=== PATIENT | male | born 1935 | race Caucasian/White ===

== ENCOUNTER 2017-07-02 02:03 | Observation (INO) | payer MEDICARE, OTHER ==
[~2017-07-02] VITALS: Ht 160 cm; Wt 74.1 kg
[~2017-07-02 02:03] MED LIST: ASPI-973 PO; LAN125 PO; LISI10TA PO; SIMV40TA5 PO; TAMS0.4C98 PO; VIT D PO
[2017-07-02 02:10] VITALS: BP 120/73; PULSE 89; RESP 16; O2SAT 96
--- NOTE | 2017-07-02 02:20 | ED.REPORT ---
HPI-Head Prob / Injury Date of Service Jul 02, 2017 ED Provider: Dr. Kwok Pt is an 82 y/o male anticoagulated on Eliquis w/ a hx of a-fib, HTN, presenting to the ED with his due to ground level fall which occurred prior to arrival. The patient normally gets up many times during the night to urinate and tonight he believes he got up too quickly which caused him to "feel generally weak" and therefore fall to the ground injuring his upper left lip. Pt denies syncope, change in LOC, CP, SOB, nausea, vomiting, diaphoresis, PANG, neck pain. He has had a syncopal episode a long time ago. Nursing Notes Stated Complaint: GLF, LIP LACERATION Chief Complaint: Multiple Trauma/Fall Nursing Notes Reviewed: Yes Allergies: Coded Allergies: Penicillins (Verified Allergy, Severe, rash and hives all over, 07/02/17) sildenafil (Verified Allergy, Unknown, too sleepy, 07/02/17) Scheduled ([Vit D]) 1 TABLET PO DAILY Aspirin (Aspirin) 81 Mg Tablet 81 MG PO EVERY OTHER DAY Digoxin (Lanoxin) 0.125 Mg Tablet 1.5 TAB PO DAILY Lisinopril (Lisinopril) 10 Mg Tablet 10 MG PO DAILY Simvastatin (Simvastatin) 40 Mg Tablet 40 MG PO HS Tamsulosin (Flomax) 0.4 Mg Capsule 0.8 MG PO DAILY General Time Seen by Provider: 02:22 Chief Complaint Blunt head trauma Hx Obtained From: Patient Arrived By: Walk-in Onset Occurred: Just prior to arrival Symptom Duration: 1 - 15 minutes Progression Since Onset: Gradually improving Severity: Current: No pain currently Severity: Maximum: No pain Similar Sx Previous: Yes Past Medical History Past Medical History A-fib anticoagulated on Eliquis HTN BPH Right carpal tunnel syndrome Possible prostate cancer Past Surgical History Cystoscopy Knee arthroscopy Smoking History Former Smoker Social History Alcohol Use: 3-5 per day Drug Use: Denies drug use Other Social History: Ambulatory Status Independent Review of Systems Constitutional: Denies: Fever GI: Denies: Abdominal pain Musculoskeletal: Denies: Neck pain Neurologic: Reports: Weakness, Denies: Change LOC, Headache, Syncope Complete sys rev & neg: except as marked. Respiratory: Denies: Shortness of breath Cardiovascular: Denies: Chest pain Physical Exam Initial Vital Signs Vital Signs (First) Date Time Temp Pulse Resp B/P Pulse Ox O2 Delivery O2 Flow Rate FiO2 07/02/17 02:10 89 16 120/73 96 Room Air 07/02/17 03:58 36.0 Initial VS: Reviewed, Vital signs normal Respiratory: Breath sounds normal, Clear to auscultation, No respiratory distress Cardiovascular: Regular rate & rhythm, Heart sounds normal, Intact distal pulses Abdomen / GI: Soft, Non-tender, No guarding, No rebound, No distention Extremities: Vascular intact, Neuro intact, No swelling, No tenderness Skin: Warm, Dry, No cyanosis Psychiatric: Mood/affect normal, Behavior normal, Normal thought content General/Constitutional: Awake, Alert, No acute distress, Cooperative, Not toxic appearing Head / Eyes: Normocephalic, PERRL, EOMI, No periorbital redness, No periorbital swelling, No photophobia Abrasions around L lateral eye and cheek ENT: Airway patent, Mucous membranes moist, Pharynx NL, No pooling of secretions, No trismus, Gums/dentition NL Deep through and through lip laceration about the left corner of the mouth which involves the circumoral muscle. Neck: Atraumatic, Supple, No meningismus, Full range of motion, No swelling, Non-tender, No midline vertebral tend Neurologic: Oriented X3, Speech NL, No motor deficits, No sensory deficits, CN II - XII intact, Cerebellar NL, Memory NL Interpretation & Diagnostics Lab Results Interpretation Result Diagram: 07/02/17 0240 07/02/17 0240 Test 07/02/17 02:40 White Blood Count 10.1th/mm3 (3.8-10.1) Red Blood Count 4.22mil/mm3 (4.40-5.80) Hemoglobin 13.6g/dL (13.8-17.2) Hematocrit 40.3% (41.0-50.0) Mean Corpuscular Volume 95.5fL (81-100) Mean Corpuscular Hemoglobin 32.2pg (27.0-35.0) Mean Corpuscular Hemoglobin Concent 33.7% (32.0-37.0) Red Cell Distribution Width 12.4% (12.3-15.4) Platelet Count 222bil/L (150-400) Neutrophils (%) (Auto) 67.0% (40-74) Lymphocytes (%) (Auto) 16.8% (14-46) Monocytes (%) (Auto) 11.2% (4-12) Eosinophils (%) (Auto) 4.3% (0-5) Basophils (%) (Auto) 0.4% (0-3) Prothrombin Time 11.0sec (8.1-12.5) Prothromb Time International Ratio 1.03ratio Activated Partial Thromboplast Time 30.4sec (22.8-33.0) Sodium Level 133mEq/L (134-144) Potassium Level 3.1mEq/L (3.5-5.2) Chloride Level 91mEq/L (97-108) Carbon Dioxide Level 23mmol/L (18-29) Blood Urea Nitrogen 24mg/dL (8-27) Creatinine 1.19mg/dL (0.76-1.27) Estimat Glomerular Filtration Rate 62mL/min (>59) Glucose Level 110mg/dL (60-99) Calcium Level 9.0mg/dL (8.5-10.1) Magnesium Level 1.8mg/dL (1.6-2.6) Total Bilirubin 0.8mg/dL (0.0-1.2) Aspartate Amino Transf (AST/SGOT) 18U/L (0-50) Alanine Aminotransferase (ALT/SGPT) 14U/L (0-44) Alkaline Phosphatase 65U/L (25-160) Troponin T 0.010ug/L (0.0-0.011) Pro-B-Type Natriuretic Peptide 1641pg/mL (0-486) Total Protein 7.3g/dL (6.4-8.4) Albumin 4.1g/dL (3.4-5.0) ECG Interpretation ECG Interpretation: Atrial fibrillation rate 93 Time: 02:28 Interpreted by: ED physician Normal ECG Interpretation: No acute ischemic changes CT Head Interpretation Impression: Generalized mild involutional changes and 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 No acute intracranial abnormality. Radiologist: Magda Yanes MD Study: Head CT no contrast Interpretation / Wet Read by: Interpret - Radiologist Procedures Laceration Management Laceration Management: Complicated lac repair - The muscle was incompletely transected. The anterior portion of the circumoral muscle was approximated with 1 4-0 chromic suture. 5 inverted 4-0 chromic sutures were used to repair the mucousal portion and the ashvin border was aligned with fast absorbing chromic. I finished repairing the skin surface with 5 fast plain gut sutures. Time: 03:20 Procedure Performed by: ED physician Consent / Setup / Site Prep: Consent from patient, Time-out performed, Hand hygiene observed, Stand sterile technique Location of Wound: Left corner of upper lip Wound Length: 3 cm Wound Preparation: Hibiclens - Chlorhexidine Debridement: None Irrigation: 150 cc Undermining / Margins: Vermilion border aligned, Flaps aligned # Sutures - Skin: 11 Closure Layers: 2 Suture Technique: Simple Post-Procedure / Complications: No complications, Condition improved, Tolerated procedure well, Patient stable Re-Eval/Medical Decision Med Decision/Clinical Course 82-year-old suffered an orthostatic ground level fall after getting up too quickly to urinate. He sustained a significant lip laceration requiring complex repair. This is detailed above. He is on [place] and struck his head with stunning no loss of consciousness apparently. CT scan initially as negative. Repeat CT scan hours per protocol. Admitted observation status for repeat CT this morning. Begun with oral clindamycin for his complex lip laceration. Source of Hx: Old records Re-Evaluation/Progress : Time of Eval: 03:59 Evaluation: Mental status normal, Neurologic nonfocal Re-Evaluation/Progress Note: Pt rechecked. Informed pt of plan for admission. Pt understands and agrees with plan for admission. All questions addressed. Consultation : Referral / Consult Name: Petty Smith DO Consulted With: Hospitalist Call Returned at: 03:59 Mixing Machine Operator: Will see patient, Agrees with eval, Agrees with plan, Accepts admit Counseled Regarding: Diagnosis, Lab results, Need for admission Discharge & Departure Primary Impression: Head injury Encounter type: initial encounter Qualified Code: S09.90XA - Unspecified injury of head, initial encounter Additional Impressions: Lip laceration Encounter type: initial encounter Qualified Code: S01.511A - Laceration without foreign body of lip, initial encounter Atrial fibrillation Atrial fibrillation type: unspecified Qualified Code: I48.91 - Unspecified atrial fibrillation Fall from ground level Anticoagulated by anticoagulation treatment Disposition: ADMITTED TO HOSPITAL All VS Reviewed: Yes Condition: Stable Referrals: Lisa Pressley MD (PCP) Scribe Attestation Portions of this note were transcribed by Miguel Angel Guerrero. I, Dr. Kwok personally performed the history, physical exam and medical decision-making; I reviewed and confirmed the accuracy of the information in the transcribed note. copies to: Lisa Pressley MD, Christopher W MD Jul 02, 2017 02:20 MIGUEL ANGEL GUERRERO Jul 02, 2017 02:29
[2017-07-02] MEDS ORDERED: 0.9% Sodium Chloride 1,000 ML IV ONE (02:28)
[2017-07-02 02:54] LABS: BASOPHILS % (AUTO) 0.4 % (0-3); EOSINOPHILS % (AUTO) 4.3 % (0-5); MONOCYTES % (AUTO) 11.2 % (4-12); Mean Corpuscular Hemoglobin 32.2 pg (27.0-35.0); Mean Corpuscular Volume 95.5 fL (81-100); Platelet Count 222 bil/L (150-400)
[2017-07-02 03:11] LABS: INR 1.03 ratio
[2017-07-02 03:18] LABS: TROPONIN T 0.01 ug/L (0.0-0.011)
[2017-07-02 03:30] LABS: Magnesium 1.8 mg/dL (1.6-2.6)
[2017-07-02] MEDS ORDERED: Ondansetron 2 mg/mL 2 mL Inj IVPUSH PRN (04:00)
[2017-07-02] MEDS ORDERED: Alum-Mag Hydrox-Simeth 30 mL Suspension PO PRN (04:00)
[2017-07-02] MEDS ORDERED: TdaP Vaccine 0.5 mL Inj IM ONE (04:00)
--- NOTE | 2017-07-02 04:14 | PCM.HPMED ---
Subjective Date of Service Jul 02, 2017 Primary Provider: Admitting Physician: Primary Care Physician: Liliam Judd PA-C Attending Physician: Chief Complaint: Fell and hit head History of Present Illness: Jamil Cook is an 82-year-old male with past medical is significant for atrial fibrillation anticoagulated with Eliquis and hypertension who presents to the ED after a ground-level fall. Patient got up from watching the [place] [employer] to run to the bathroom during commercial break and immediately felt weak and fell to the ground hitting his head and lacerating his upper left lip. Patient states he has done this before and was evaluated down in [place]. Evaluation showed no cause aside from his A. fib and likely orthostatic with quick movements from the seated position to standing. He denies losing consciousness, chest pain, shortness of breath, nausea, vomiting, diaphoresis, headache, neck pain, or dysuria. No other recent falls. On presentation to the ED vital signs temperature 36.0, pulse 89, respiratory rate 16 satting 96% on room air, and blood pressure of 120/73. Initial labs revealed sodium 133, potassium of 3.1, chloride of 91, PT 11, INR 1.03, and PTT 30.4. CT head showed no acute intracranial abnormality. In the ED patient's lips was sutured. He also received 1 dose of clindamycin to be continued for 5 days. Review of Systems: Comprehensive review of systems was conducted with the patient and found to be negative except as noted above in HPI. Allergies Coded Allergies: Penicillins (Verified Allergy, Severe, rash and hives all over, 07/02/17) sildenafil (Verified Allergy, Unknown, too sleepy, 07/02/17) Home Medications Jamil Rizzo [id number] 06/14/2017 08:30 AM /06/03/2016 atorvastatin 20 mg tablet take 1 tablet by oral route every day 04/13/2016 clobetasol 0.05 % scalp solution mix with Cerave and apply twice daily for 2 wks, then daily for 1 wk and then 2-3x/wk prn to all affected areas. Do not apply to the face 08/01/2015 Eliquis 5 mg tablet take 1 tablet by oral route 2 times every day Flomax 0.4 mg capsule take 1 capsule by ORAL route every night 06/03/2016 furosemide 40 mg tablet take 1 tablet by oral route twice daily 06/03/2016 propranolol ER 160 mg capsule,24 hr,extended release take 1 capsule by oral route 2 times every day 02/23/2017 Ventolin HFA 90 mcg/actuation aerosol inhaler inhale 2 puff by inhalation route every 4 - 6 hours as needed Vitamin D3 2,000 unit capsule take 1 capsule by oral route every day PMH A-fib anticoagulated on Eliquis Hypertension Dyslipidemia Rheumatic fever at age 6 BPH Right carpal tunnel syndrome Possible prostate cancer Interstitial lung disease Surgical History Cystoscopy Knee arthroscopy Family History Father - hypertension Social History Hx Alcohol Use: Yes (3/beer per night.) Hx Substance Use: No Hx Tobacco Use: Yes Smoking Status: Former Smoker Living Arrangement: with Family Exam Vital Signs Vital Sign - Last Date Time Temp Pulse Resp B/P Pulse Ox O2 Delivery O2 Flow Rate FiO2 07/02/17 03:58 36.0 07/02/17 02:10 89 16 120/73 96 Room Air Exam General: No acute distress, well-developed, well-nourished, appropriately interactive HEENT: Normocephalic. Abrasions present around left lateral eye and cheek. External ears without defect. Pupils equal, round, and reactive to light and accommodation. Upper left lip with 3cm laceration with sutures in place. Neck: Supple with full range of motion. No jugular venous distension. No bruits. No lymphadenopathy or thyromegaly. Cardiovascular: Regular rate and rhythm with no murmurs, rubs, or gallops appreciated Pulmonary: Clear to auscultation bilaterally with no crackles, wheezes, or rhonchi. Normal respiratory effort with no use of accessory muscles. Abdomen: Bowel tones present. Obese, soft, nontender. Extremities: Superficial abrasion on left elbow. No clubbing, cyanosis, edema, or lymphadenopathy appreciated. Skin: Normal temperature, turgor, and texture. Neurological: Cranial nerves grossly intact. Normal muscle strength, tone, and bulk. Reflexes, coordination, and sensory function within normal limits. No known gait impairment. Psychiatric: Normal mood and affect. Alert and oriented to person, place, and time. 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 No acute intracranial abnormality. Radiologist: Magda Yanes MD Study: Head CT no contrast Interpretation / Wet Read by: Interpret - Radiologist 12-lead ECG A. fib with a rate of 93 Cardiac Echo Impressions Echocardiogram Report Name: JAMIL RIZZO Study Date:06/11/2015 Interpretation Summary 1) Normal left ventricular size and hyperdynamic function, with EF > 70% 2) Normal right ventricular size and function 3) Trileaflet aortic valve with moderate degree of sclerosis 4) Mild aortic stenosis present (mean gradient 22mmHg, KIMBERLY 1.6cm2). Gradient appears worse than probable real gradient due to hyperdynamic LV function. 5) Grade 2 diastolic dysfunction (pseudonormalization) is present 6) Compared to Echo study dated 02/20/2013, hyperdynamic LV systolic function and mild aortic stenosis are present on today's study. Reading Physician:AM Assessment & Plan Jamil Cook is an 82-year-old male with past medical is significant for atrial fibrillation anticoagulated with Eliquis and hypertension who presents to the ED after a ground-level fall. Ground-level fall while anticoagulated on Eliquis, present on admission, active. - Etiology secondary to quickly standing from a seated position and becoming lightheaded in the setting of atrial fibrillation. No loss of consciousness. - CT head without contrast showed no acute intracranial process. Due to patient 's anticoagulation repeat CT in 6 hours. - If repeat CT is negative patient can be discharged if no other concerning symptoms or findings. - Hold Eliquis until results of repeat CT. - Last echo was 06/11/2015 which showed an EF of 70%. Patient follows with Dr. Brown and he is scheduled for a repeat echo in 9 months. Upper left lip laceration, present on admission, active. - Sutured in the ED. - Clindamycin given in the ED. To be continued for 5 days. Hypokalemia, present on admission, active. - Replacing. Repeat lab following completion. Chronic stable conditions Permanent atrial fibrillation anticoagulated with Eliquis - Continue home medication: Propranolol ER 160 mg twice a day. - Hold Eliquis until after repeat CT. Heart failure with preserved ejection fraction - Continue home medication: Furosemide 40 mg daily. Hyperlipidemia - Held atorvastatin. BPH - Continue home medication: Flomax 0.4 mg daily. PRN Medications - Acetaminophen as needed for mild pain/fever/headache - Bowel regimen as needed - Antiemetic as needed Patient is admitted under observation status with expected length of stay less than 2 midnights due to severity of presenting symptoms, risk of adverse event, and complexity of treatment plan. Pain Evaluation: Adequate Pain Control GI Prophylaxis: Not indicated VTE Prophylaxis Indicated: Contraindicated VTE Prophylaxis: SCDs Resuscitation Status: DNR/DNI:Do Not Resuscitate/Intubate Attending Statement The patient was seen and examined together with house staff on 07/02/2017 and I agree with the history, exam and plan as outlined in the note above. WILMER ZAMORA DO Jul 02, 2017 04:14 Petty Smith DO Jul 02, 2017 06:53 VTE Prophylaxis: SCDs Resuscitation Status: DNR/DNI:Do Not Resuscitate/Intubate WILMER ZAMORA DO Jul 02, 2017 04:14
[2017-07-02] MEDS ORDERED: Potassium Chloride Inj 20 MEQ in Dextrose 5% 250 ML IV ONE (05:00)
[2017-07-02 05:02] VITALS: BP 106/69; PULSE 85; RESP 15; O2SAT 98
[2017-07-02 05:22] VITALS: PULSE 91
[2017-07-02 05:30] VITALS: BP 99/67; PULSE 88; RESP 18; O2SAT 96
[2017-07-02] MEDS ORDERED: Potassium Chloride 20 mEq SR Tablet PO ONE ×2 (05:30→08:00)
[2017-07-02] MEDS ORDERED: Propranolol LA 80 mg ER24 Capsule PO SCH (08:30)
--- NOTE | 2017-07-02 09:30 | DRSVH ---
PROCEDURE: CT BRAIN WITHOUT CONTRAST ([id number]) INDICATIONS: syncope, head injury on eliquis TECHNIQUE: Noncontrast 4.5 mm thick angled axial sections acquired from the foramen magnum to the vertex, with c oronal reformats. COMPARISON: None. FINDINGS: Image quality: Excellent. CSF spaces: Basal cisterns are patent. No extra-axial fluid collections. The ventricles are symmet phillip in size and shape. Brain: No intracranial bleeds or masses. There is cerebral volume loss for age, with resultant vent ricular and sulcal prominence. There are periventricular and deep white matter chronic small vessel ischemic changes. There is intracranial internal carotid artery atherosclerosis. Skull and face: Calvarium and visualized facial bones appear intact, without suspicious lesions. Sinuses: Visualized sinuses and mastoids are clear. IMPRESSION: Mild microvascular atherosclerotic change, no acute disease. No trauma seen. Note: These findings are concordant with the preliminary interpretation. Dictated by: Anam Haynes M.D. on 07/02/2017 at 9:28 Approved by: Anam Haynes M.D. on 07/02/2017 at 9:28
[2017-07-02 09:37] VITALS: BP 125/75; PULSE 100; RESP 20; O2SAT 98
[2017-07-02] MEDS ORDERED: .Epic Conversion Completed XX PRN (11:10)
--- NOTE | 2017-07-02 12:16 | DRSVH ---
PROCEDURE: CT BRAIN WITHOUT CONTRAST ([id number]) INDICATIONS: anticoagulated, blunt head injury TECHNIQUE: Noncontrast 4.5 mm thick angled axial sections acquired from the foramen magnum to the vertex, with c oronal reformats. COMPARISON: [facility], CT, CT BRAIN WO CON, 07/02/2017, 2:57. FINDINGS: Image quality: Excellent. CSF spaces: Basal cisterns are patent. No extra-axial fluid collections. The ventricles are symmet phillip in size and shape. Brain: No intracranial bleeds or masses. There is cerebral volume loss for age, with resultant vent ricular and sulcal prominence. There are periventricular and deep white matter chronic small vessel ischemic changes. There is intracranial internal carotid artery atherosclerosis. Skull and face: Calvarium and visualized facial bones appear intact, without suspicious lesions. Sinuses: Visualized sinuses and mastoids are clear. IMPRESSION: No interval change from the head CT performed at approximately 3 in the morning earlier today. Mild microvascular atherosclerotic change, no hemorrhage found. Dictated by: Anam Haynes M.D. on 07/02/2017 at 12:13 Approved by: Anam Haynes M.D. on 07/02/2017 at 12:14
--- NOTE | 2017-07-02 12:28 | PCM.DIMED ---
Discharge Instructions Date of Service Jul 02, 2017 Dates of Hospitalization Jul 02, 2017 at 04:14 Discharge Diagnosis Discharge Diagnosis 1. Ground-level fall while anticoagulated on Eliquis, stable. 2. Upper left lip laceration, stable. 3. Closed head injury, stable. 4. Hypokalemia, improved. 5. Permanent atrial fibrillation anticoagulated with Eliquis, stable 6. Chronic diastolic Heart failure with preserved ejection fraction, stable. 7. Hyperlipidemia 8. Benign prostate hypertrophy Diet Discharge Diet: No restrictions Activity Discharge Activity: No restrictions Call your provider Call your provider for: Other (headache) Patient Instructions Patient Instructions Take your time when getting up, especially from a reclined position. Follow-up with PCP in: 1 week Eliot Marvin MD Jul 02, 2017 12:28
--- NOTE | 2017-07-02 12:43 | PCM.DC.MED ---
Discharge Summary Date of Service Jul 02, 2017 Dates of Hospitalization Date of Hospital Admission Jul 02, 2017 at 04:14 Date of Discharge: Jul 02, 2017 Providers: Admitting Physician: Petty Smith DO Primary Care Physician: Liliam Judd PA-C Attending Physician: Eliot Marvin MD Diagnosis at Time of Discharge Diagnosis at Time of Discharge 1. Ground-level fall while anticoagulated on Eliquis, stable. 2. Upper left lip laceration, stable. 3. Closed head injury, stable. 4. Hypokalemia, improved. 5. Permanent atrial fibrillation anticoagulated with Eliquis, stable 6. Chronic diastolic Heart failure with preserved ejection fraction, stable. 7. Hyperlipidemia 8. 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 No acute intracranial abnormality. Radiologist: Magda Yanes MD Study: Head CT no contrast Interpretation / Wet Read by: Interpret - Radiologist A second CT scan at 11:00 in the morning of discharge was also unremarkable. ECG 12 Lead A. fib with a rate of 93 Cardiac Echo Impression Echocardiogram Report Name: JAMIL RIZZO Study Date:06/11/2015 Interpretation Summary 1) Normal left ventricular size and hyperdynamic function, with EF > 70% 2) Normal right ventricular size and function 3) Trileaflet aortic valve with moderate degree of sclerosis 4) Mild aortic stenosis present (mean gradient 22mmHg, KIMBERLY 1.6cm2). Gradient appears worse than probable real gradient due to hyperdynamic LV function. 5) Grade 2 diastolic dysfunction (pseudonormalization) is present 6) Compared to Echo study dated 02/20/2013, hyperdynamic LV systolic function and mild aortic stenosis are present on today's study. Reading Physician:KATHY Invasive Procedures None Brief History Jamil Cook is an 82-year-old male with past medical is significant for atrial fibrillation anticoagulated with Eliquis and hypertension who presents to the ED after a ground-level fall. Patient got up from watching the [employer] to run to the bathroom during commercial break and immediately felt weak and fell to the ground hitting his head and lacerating his upper left lip. Patient states he has done this before and was evaluated down in [place]. Evaluation showed no cause aside from his A. fib and likely orthostatic with quick movements from the seated position to standing. He denies losing consciousness, chest pain, shortness of breath, nausea, vomiting, diaphoresis, headache, neck pain, or dysuria. No other recent falls. On presentation to the ED vital signs temperature 36.0, pulse 89, respiratory rate 16 satting 96% on room air, and blood pressure of 120/73. Initial labs revealed sodium 133, potassium of 3.1, chloride of 91, PT 11, INR 1.03, and PTT 30.4. CT head showed no acute intracranial abnormality. In the ED patient's lips was sutured. He also received 1 dose of clindamycin to be continued for 5 days. Hospital Course Jamil Cook is an 82-year-old male with past medical is significant for atrial fibrillation anticoagulated with Eliquis and hypertension who presents to the ED after a ground-level fall. Ground-level fall while anticoagulated on Eliquis, present on admission, active. - Etiology secondary to quickly standing from a seated position and becoming lightheaded in the setting of atrial fibrillation. No loss of consciousness. - CT head without contrast showed no acute intracranial process. Due to patient 's anticoagulation repeat CT in 6 hours. - If repeat CT is negative patient can be discharged if no other concerning symptoms or findings. - Hold Eliquis until results of repeat CT. - Last echo was 06/11/2015 which showed an EF of 70%. Patient follows with Dr. Brown and he is scheduled for a repeat echo in 9 months. Upper left lip laceration, present on admission, active. - Sutured in the ED. - Clindamycin given in the ED. To be continued for 5 days. Hypokalemia, present on admission, active. - Replacing. Repeat lab following completion. Chronic stable conditions Permanent atrial fibrillation anticoagulated with Eliquis - Continue home medication: Propranolol ER 160 mg twice a day. - Hold Eliquis until after repeat CT. Heart failure with preserved ejection fraction - Continue home medication: Furosemide 40 mg daily. Hyperlipidemia - Held atorvastatin. BPH - Continue home medication: Flomax 0.4 mg daily. Hospital course: The patient is admitted for observation. 2 serial CTs were unremarkable. Head no headache. He had no other neurologic symptoms. The morning of discharge she felt well. He has had a recurrent pattern of near syncopal episodes if he gets up from her recliner to quickly as advised to slow down and do this in 2 phases in the future. Exam Vital Signs (Last) Date Time Temp Pulse Resp B/P Pulse Ox O2 Delivery O2 Flow Rate FiO2 07/02/17 09:37 36.8 100 20 125/75 98 Room Air Exam The patient was seen and examined the day of discharge. He was felt to be medically stable for discharge Test 07/02/17 02:40 07/02/17 09:20 White Blood Count 10.1th/mm3 (3.8-10.1) Red Blood Count 4.22mil/mm3 (4.40-5.80) Hemoglobin 13.6g/dL (13.8-17.2) Hematocrit 40.3% (41.0-50.0) Mean Corpuscular Volume 95.5fL (81-100) Mean Corpuscular Hemoglobin 32.2pg (27.0-35.0) Mean Corpuscular Hemoglobin Concent 33.7% (32.0-37.0) Red Cell Distribution Width 12.4% (12.3-15.4) Platelet Count 222bil/L (150-400) Neutrophils (%) (Auto) 67.0% (40-74) Lymphocytes (%) (Auto) 16.8% (14-46) Monocytes (%) (Auto) 11.2% (4-12) Eosinophils (%) (Auto) 4.3% (0-5) Basophils (%) (Auto) 0.4% (0-3) Prothrombin Time 11.0sec (8.1-12.5) Prothromb Time International Ratio 1.03ratio Activated Partial Thromboplast Time 30.4sec (22.8-33.0) Magnesium Level 1.8mg/dL (1.6-2.6) Troponin T 0.010ug/L (0.0-0.011) Pro-B-Type Natriuretic Peptide 1641pg/mL (0-486) Sodium Level 137mEq/L (134-144) Potassium Level 3.4mEq/L (3.5-5.2) Chloride Level 97mEq/L (97-108) Carbon Dioxide Level 28mmol/L (18-29) Blood Urea Nitrogen 19mg/dL (8-27) Creatinine 0.95mg/dL (0.76-1.27) Estimat Glomerular Filtration Rate 81mL/min (>59) Glucose Level 133mg/dL (60-99) Calcium Level 8.3mg/dL (8.5-10.1) Total Bilirubin 1.1mg/dL (0.0-1.2) Aspartate Amino Transf (AST/SGOT) 16U/L (0-50) Alanine Aminotransferase (ALT/SGPT) 13U/L (0-44) Alkaline Phosphatase 61U/L (25-160) Total Protein 6.4g/dL (6.4-8.4) Albumin 3.9g/dL (3.4-5.0) Discharge Medications Discharge Medications ([Vit D]) 1 TABLET PO DAILY (Reported) Aspirin (Aspirin) 81 Mg Tablet 81 MG PO EVERY OTHER DAY (Reported) Digoxin (Lanoxin) 0.125 Mg Tablet 1.5 TAB PO DAILY (Reported) Lisinopril (Lisinopril) 10 Mg Tablet 10 MG PO DAILY (Reported) Simvastatin (Simvastatin) 40 Mg Tablet 40 MG PO HS (Reported) Tamsulosin (Flomax) 0.4 Mg Capsule 0.8 MG PO DAILY (Reported) Followup Plan Disposition: Home Discharge Diet: No restrictions Discharge Activity: No restrictions Patient Instructions Take your time when getting up, especially from a reclined position. Follow-up with PCP in: 1 week Time spent 30 minutes Eliot Marvin MD Jul 02, 2017 12:43
--- NOTE | 2017-07-02 16:05 | NUR ---
Social Work Note: Initial Assessment/Discharge Data& Assessment: EMR Reviewed. Per MD in multidisciplinary rounds, pt is medically ready for discharge. Joie Jordan is a 82 year old male admitted today on 07/02/2017 under observation status for a blunt head trauma after collapsing watching a football game. Per MD pt is medically stable and improved and ready for discharge. MD does not identify any concerns for pt capacity for self care. SAUSAGE INSPECTOR met with pt and pt family at bedside to confirm discharge plan and assess for any unmet needs, SAUSAGE INSPECTOR role explained and Discharge Planning Checklist packet was provided. Pt has Medicare and [email or web address] insurance coverage. Pt sees Liliam JAIN for primary care. Pt lives in [place] with his spouse and is independent at baseline with all ADL's. Pt does not use any DME at baseline and does not have HH or SNF hx. Pt does not have LTC insurance and is not a . Pt states he has completed DPOA/AD paperwork at home and SAUSAGE INSPECTOR requested a copy for his chart when possible. Pt and granddaughter providing transportation today. No other MD orders identified. Pt denies any other needs. Plan: Per pt is medially improved and ready to discharge home via POV. No other MD orders or pt needs identified. ASHLEY Lopez Addendum: 07/02/17 at 1613 by TAD VOGEL Amended: Links added.
--- NOTE | 2017-07-02 16:23 | NUR ---
Discharge Patient discharge to home with all belongings at 1345. Explained to patient when next medications are due and discharge instructions. Patient verbalized understanding. Dc'd IV intact. Dc'd telemetry. Vitals stable. Patient left floor via wheelchair accompanied by this RN and family with no signs of distress.
== END 2017-07-02 13:45 | disposition home or self-care (01) ==
LOC: SED 02:03 → MPC 04:14
PROVIDERS: ADMIT Internal Medicine; ATTEND Hospitalist
DX: S09.90XA Unspecified injury of head, initial encounter (principal); S01.511A Laceration without foreign body of lip, initial encounter; I48.1 Persistent atrial fibrillation; W18.30XA Fall on same level, unspecified, initial encounter; I11.0 Hypertensive heart disease with heart failure; I50.32 Chronic diastolic (congestive) heart failure; Z79.01 Long term (current) use of anticoagulants; N40.0 Benign prostatic hyperplasia without lower urinary tract symptoms; E87.6 Hypokalemia; E78.5 Hyperlipidemia, unspecified; Z66 Do not resuscitate; Y93.01 Activity, walking, marching and hiking; Y92.008 Other place in unspecified non-institutional (private) residence as the place of occurrence of the external cause; Z87.891 Personal history of nicotine dependence; Y99.8 Other external cause status; Z23 Encounter for immunization